=== PATIENT | female | born 1935 | race Caucasian/White ===

== ENCOUNTER 2019-03-04 07:59 | Day surgery (SDC) | payer MEDICARE, BC ==
--- NOTE | 2019-03-03 12:59 | PREOPHP ---
DATE OF ADMISSION: 03/04/2019 HISTORY OF PRESENT ILLNESS: This 83-year-old patient is admitted for elective cataract surgery of th e right eye. The patient has had decreased vision in the right eye for a number of years, which has been progressive in terms of loss of vision. 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 No other prior history of eye disease or injury. The patient's systemic history is positive for hypert ension, hypercholesterolemia, arthritis, and depression with sleep abnormality. CURRENT MEDICATIONS: 1. Benicar. 2. Clonidine. 3. Seroquel. 4. Naproxen. ALLERGIES: THERE ARE NO KNOWN ALLERGIES. PHYSICAL EXAMINATION: EYES: The visual acuity with best correction is 20/70 in the right eye and 20/40 in the left eye. S lit lamp examination reveals anterior cortical and nuclear sclerotic cataracts greater in the right e ye than in the left eye. Applanation tonometry is 19 mmHg in both eyes. There is evidence of a lase r peripheral iridotomy in the right eye. Examination of the retina is within normal limits. DIAGNOSIS: Cortical and nuclear sclerotic cataract, right eye. PLAN: Cataract extraction with lens implant, right eye. The risks and alternatives to the surgery h ave been discussed with the patient as well as the hope for improvement of visual acuity leading to g reater ability to perform activities of daily living. The patient understands this and consents to osiel méndez with the surgery. Dictated By: KRISTIAN MÁRQUEZ/DARCIE Conf#: [id number] DID#: [id number]
[~2019-03-04] VITALS: Ht 160 cm; Wt 94.6 kg
[2019-03-04] VITALS (9 sets, daily range): BP systolic 126–148; BP diastolic 63–76; PULSE 65–75; RESP 11–18; Ht 160 cm; Wt 94.6 kg
[~2019-03-04 07:59] MED LIST: CYCLOPENTOLATE/PHENYLEPH 2 ML OPH OPER SCH; DICLOFENAC 0.1% 2.5 ML OPH OPER SCH; MOXIFLOXACIN 0.5% 3 ML OPH OPER SCH; SOD CHLORIDE 0.9% 1,000 ML IV SCH; TROPICAMIDE 1% 15 ML OPH OPER SCH
[2019-03-04] MEDS ORDERED: OLME20TA20 PO (08:59)
[2019-03-04] MEDS ORDERED: RSV10T PO (08:59)
[2019-03-04] MEDS ORDERED: QUET100T PO (08:59)
[2019-03-04] MEDS ORDERED: ESOM40CA PO (09:00)
[2019-03-04] MEDS ORDERED: CLON-429 PO (09:00)
[2019-03-04] MEDS ORDERED: DEXAMETHASONE 4 MG/ML 1 ML INJ ONE (09:16)
[2019-03-04] MEDS ORDERED: CARBACHOL 0.01% 1.5 ML OPH INJ ONE (09:16)
[2019-03-04] MEDS ORDERED: GENTAMICIN 80 MG INJ ONE (09:16)
[2019-03-04] MEDS ORDERED: CEFAZOLIN 1 GM INJ ONE (09:16)
[2019-03-04] MEDS ORDERED: LIDOCAINE 4% (MPF) 5 ML INJ ONE (09:16)
[2019-03-04] MEDS ORDERED: NA HYALURONATE/CHONDROITIN 0.5 ML SYG ONE (09:17)
[2019-03-04] MEDS ORDERED: EPINEPHrine 1 MG INJ ONE (09:17)
--- NOTE | 2019-03-04 09:38 | PREAC ---
Date/Time of Note Date/Time of Note DATE: 03/04/19 TIME: 09:37 Anesthesia Eval and Record Evaluation Time Pre-Procedure Interview DATE: 03/04/19 TIME: 09:37 Age 83 Sex female NPO: 8 hrs Preoperative diagnosis right eye cataract Planned procedure right eye cataract EXTRACTIONN AND IOL PLACEMENT Past Medical History Past Medical History: Includes Cardio: HTN, Dyslipidemia GI: Obesity Surgery & Anesthesia Issues No known issue Meds Anticoagulation: No Beta Bethany within 24 hr: No Reason Beta Bethany not given: Pt. not on B-Bethany Reported Medications Esomeprazole Mag Trihydrate (Nexium) 40 Mg Capsule.dr, 40 MG PO DAILY, #30 CAP 03/04/19 Clonazepam* (Klonopin*) 0.5 Mg Tab, 0.5 MG PO BID PRN for ANXIETY, TAB 03/04/19 Quetiapine Fumarate* (Seroquel*) 100 Mg Tablet, 150 MG PO DAILY, #30 TAB 03/04/19 Rosuvastatin Calcium* (Crestor*) 10 Mg Tablet, 10 MG PO QHS, #30 TAB 03/04/19 Olmesartan Medoxomil (Benicar) 20 Mg Tablet, 20 MG PO DAILY, #30 TAB 03/04/19 Current Medications Diclofenac Sodium (Voltaren 0.1%) 1 drop Q5 MIN X 3 OPER Last administered on 03/04/19at 09:02; Admin Dose 1 DROP; Start 03/04/19 at 06:30; Stop 03/04/19 at 18:00 Tropicamide (Mydriacyl 1%) 1 drop Q5 MIN X3 OPER Last administered on 03/04/19at 09:01; Admin Dose 1 DROP; Start 03/04/19 at 06:30; Stop 03/04/19 at 18:00 Moxifloxacin HCl (Vigamox) 1 drop Q5 MIN X 3 OPER Last administered on 03/04/19at 09:01; Admin Dose 1 DROP; Start 03/04/19 at 06:30; Stop 03/04/19 at 18:00 Cyclopentolate/ Phenylephrine (Cyclomydril Oph 2 ml) 1 drop Q5 MIN X 3 OPER Last administered on 03/04/19at 09:01; Admin Dose 1 DROP; Start 03/04/19 at 06:30; Stop 03/04/19 at 18:00 Sodium Chloride 1,000 ml @ 25 mls/hr Q24H IV Last administered on 03/04/19at 09:02; Admin Dose 25 MLS/HR; Start 03/04/19 at 06:30; Stop 03/04/19 at 18:00 Meds reviewed: Yes Allergies Coded Allergies: No Known Allergy (Unverified , 03/04/19) Allergies Reviewed: Yes Labs/Studies Labs Reviewed: Reviewed by anesthesiologist test: N/A Pre-procedure Exam Last vitals Vital Signs Date Temp Pulse Resp B/P (MAP) Pulse Ox O2 O2 Flow FiO2 Time Delivery Rate 03/04/19 98.2 75 16 128/66 96 Room Air 09:06 (86) Airway: Adequate mouth opening, Adequate thyromental dist Mallampati: Mallampati II Teeth: Normal Lung: Normal Heart: Normal ASA Physical Status ASA physical status: 2 Emergency: None Planned Anesthetic General/MAC: MAC Pre-operative Attestations Prior to commencing anesthesia and surgery, the patient was re-evaluated, there was verification of: *The patient's identity *The results of appropriate recent lab work and preoperative vital signs *The above evaluation not changing prior to induction *Anesthetic plan, risk benefits, alternative and complications discussed with patient/family; questions answered; patient/family understands, accepts and wishes to proceed. Colten Gómez M.D. Mar 04, 2019 09:38
[2019-03-04] MEDS ORDERED: LIDOCAINE 100 MG SYRINGE ONE (09:41)
[2019-03-04] MEDS ORDERED: PROPOFOL 20 ML ONE (09:41)
[2019-03-04] MEDS ORDERED: TRIMETHOBENZAMIDE 100 MG/ML VIAL IM PRN (10:00)
[2019-03-04] MEDS ORDERED: EPHEDrine 25 MG/5 ML SYG IV PRN (10:00)
[2019-03-04] MEDS ORDERED: ONDANSETRON 4 MG INJ IV PRN (10:00)
[2019-03-04] MEDS ORDERED: HYDROmorphONE 1 MG/5 ML IV SYRINGE IV PRN ×3 (10:00)
[2019-03-04] MEDS ORDERED: LABETALOL HCL 20MG INJ IV PRN (10:00)
[2019-03-04] MEDS ORDERED: OXYCODONE/ACETAMINOPHEN (5/325) TAB PO PRN ×2 (10:00)
[2019-03-04] MEDS ORDERED: MIDAZOLAM 1 MG/ML 2 ML INJ IV PRN (10:00)
[2019-03-04] MEDS ORDERED: DIPHENHYDRAMINE 50 MG INJ IV PRN (10:00)
[2019-03-04] MEDS ORDERED: FENTAnyl 50 MCG/ML VIAL IV PRN ×3 (10:00)
[2019-03-04] MEDS ORDERED: ALBUTEROL 0.083% (NEB) 2.5 MG/3 ML AMP HHN PRN (10:00)
[2019-03-04] MEDS ORDERED: IPRATROPIUM (NEB) 0.5 MG/2.5 ML AMP HHN PRN (10:00)
[2019-03-04] MEDS ORDERED: hydrALAzine 20 MG INJ IV PRN (10:00)
[2019-03-04] MEDS ORDERED: MEPERIDINE 25 MG INJ IV PRN (10:00)
[2019-03-04] MEDS ORDERED: DEXAMETHASONE 4 MG/ML 1 ML INJ INJ ONE (10:02)
[2019-03-04] MEDS ORDERED: TETRACAINE 0.5% 4 ML OPH RIGHT EYE ONE (10:02)
[2019-03-04] MEDS ORDERED: FENTAnyl 50 MCG/ML VIAL ONE (10:15)
--- NOTE | 2019-03-04 10:55 | SIPON ---
Date/Time of Note Date/Time of Note DATE: 03/04/19 TIME: 10:53 Operative Report Preoperative Diagnosis nuclear sclerotic cataract od anatomic narrow angle glaucoma od Postoperative Diagnosis same Operation/Procedure Performed cataract extraction with insertion of retracting iris hooks, anterior vitrectomy & lens implant od Surgeon kristian haq day care assistant none Anesthesia: MAC Estimated blood loss: none Transfusion Required none Specimen none Grafts/Implants anterior chamber lens implant od Complications none KRISTIAN HAQ MD Mar 04, 2019 10:55
--- NOTE | 2019-03-04 12:26 | OPR ---
DATE OF OPERATION: 03/04/2019 PREOPERATIVE DIAGNOSIS: Nuclear sclerotic cataract, associated with a history anatomic narrow angle glaucoma suspect, right eye. POSTOPERATIVE DIAGNOSIS: Nuclear sclerotic cataract, associated with a history anatomic narrow angle glaucoma suspect, right eye. OPERATION PERFORMED: 1. Cataract extraction with lens implant, right eye. 2. Anterior vitrectomy, right eye. DESCRIPTION OF PROCEDURE: Patient brought to the operating room on an eye gurney, positioned appropriately, attached to electrocardiogram monitoring, given oxygen via nasal cannula. The patient was then given some intravenous sedation and then received local anesthesia using lidocaine 4% given in lid block and retrobulbar injection. The patient was prepped and draped in the usual sterile manner and a speculum was inserted between the lids of the right eye. A Superblade was used to make 2 paracentesis incisions in the nasal and temporal quadrants through clear cornea adjacent to the corneoscleral limbus. Following this, a 3.0 mm keratome was used to enter the cornea in the superior quadrant adjacent to the corneoscleral limbus. This incision was made in a stepped corneal incision. An irrigating cystotome was introduced into the anterior chamber and the anterior chamber was filled with Viscoat and an anterior capsulotomy was performed, and balanced salt solution was used for hydrodissection. Phacoemulsification of the lens nucleus was then performed by means of dividing the lens into quadrants and then emulsifying the lens nucleus. It was noted during phacoemulsification of the lens nucleus that the pupil was becoming small and inadequate visualization was noted. Because of this, a third paracentesis incision was made through clear cornea inferiorly and then 3 iris hooks were inserted and used to retract the iris so that greater visualization would be had. Phacoemulsification of the lens nucleus was then continued. Following this completion, attention was turned to the lens cortical material and epinuclear remnants of the cataract. As this was being performed, it was noted that there was some stripping and dehiscence of the capsule intermingled with at epinuclear cataract and cortical material. An attempt was made to separate this, however upon finally completing the removal of the lens cortical and epinuclear material, it was noted that most of the capsule had been dehisced and there was only a small remnant of posterior capsule insufficient to support a posterior chamber intraocular lens. At this point, it was decided to change from a posterior chamber intraocular lens implant of an anterior chamber lens implant. While preparing the patient for this step of the procedure, it was noted that there was some formed vitreous in the anterior chamber and at the lips of the wound. A limited anterior vitrectomy was performed using mechanical vitrectomy instrumentation until there was no vitreous at the lips of the wound. A peripheral iridotomy was performed and mid iris using a Superblade. Following this, the anterior chamber was again filled with Viscoat and then the incision was enlarged from its 3 mm size to a 6.5 mm size by using curved corneal scissors. Through this opening, a lens glide was introduced into the anterior chamber and in front of the iris and then a 21.0 diopter anterior chamber intraocular lens (Bausch and Lomb Model [id number]) was inserted into the anterior chamber. After the leading haptic was introduced, the lens glide was removed and then the trailing haptic was tucked beneath the scleral shelf. Two interrupted 10-0 nylon sutures were placed and tied and the ends were cut short. The lens was then rotated so that the haptics were oriented in the horizontal meridian. It was noted that there was no distortion of the iris or the pupil indicating that the haptics were in appropriate position. Two additional sutures of 10-0 nylon were placed across the wound and prior to tying them the Viscoat was aspirated from the anterior chamber. The sutures were then tied, the ends were cut short and knots were then buried in the clear cornea on the scleral side. Following this, the speculum was removed, and 0.5 mL of Ancef and 0.5 mL of dexamethasone were injected into the sub-Tenon space through the inferior fornix. Vigamox drops were placed on the surface of the eye and the eye was patched. The patient left the operating room in satisfactory condition. Dictated By: KRISTIAN MÁRQUEZ/DARCIE Conf#: [id number] DID#: [id number] SUKHJINDER
== END 2019-03-04 12:08 | disposition home or self-care (01) ==
LOC: SDS 07:59 → EDBD 10:30 → SDS 12:08
PROVIDERS: ATTEND Ophthalmology
DX: H25.11 Age-related nuclear cataract, right eye (principal); I10 Essential (primary) hypertension; E78.5 Hyperlipidemia, unspecified
CPT/HCPCS: 66984; J0171; J0690; J1100; J1580; J2001; J3010; V2632